=== PATIENT | male | born 1995 | race Asian ===

== ENCOUNTER 2017-02-28 12:13 | Emergency (ER) | payer BC ==
[~2017-02-28] VITALS: Ht 177.8 cm; Wt 64.5 kg
[2017-02-28 12:18] VITALS: TEMP 36.5; Ht 177.8 cm; Wt 64.5 kg
--- NOTE | 2017-02-28 12:36 | EMERGENCY ROOM VISIT NOTE ---
ED Visit Note First contact with patient: 12:27 CHIEF COMPLAINT: Left third finger injury HISTORY OF PRESENT ILLNESS: This 21-year-old male presents the ER with chief complaint of injury to his left third finger. The patient states that this morning he was vacuuming and put his hand underneath a vacuum to check the airflow and the brush hit his left third finger and now there is an open wound. The patient applied antibiotic ointment and a bandage. The patient's tetanus is up-to-date. The patient is right-hand dominant. The patient states he just wanted to make sure it was nothing serious. REVIEW OF SYSTEMS: 6 system review was performed and was negative unless stated otherwise in history of present illness. PMH: The patient is healthy; there is no significant medical or surgical history. SOCIAL HISTORY: Patient is a [employer] student. The patient denies tobacco use but admits to occasional alcohol use. PHYSICAL EXAM: Vital Signs: Were reviewed Reviewed Nurse's notes. GEN.: 21-year -old male appears in no acute distress. MENTAL STATUS: Alert and oriented 3. LEFT THIRD FINGER: There is a superficial abrasion noted over the dorsal aspect of the middle and distal phalanx. There is no active bleeding. The patient is able to flex and extend his finger without difficulty. There are no signs of infection. EMERGENCY DEPARTMENT COURSE: The patient was evaluated. The wound was cleansed and antibiotic ointment and a bandage applied. DIAGNOSIS: Abrasion left third finger DISCHARGE INSTRUCTIONS & TREATMENT: Antibiotic ointment and a bandage for 2 days then let the wound open to the air to heel. Any signs of infection, follow -up with [facility]. Vital Signs Date Time Temp Pulse Resp B/P (MAP) Pulse Ox O2 Delivery O2 Flow Rate FiO2 02/28/17 12:18 36.5 75 16 110/73 98 Room Air Departure Information Referrals No Doctor, Assigned (PCP) Patient Instructions [facility]
[2017-02-28 12:46] VITALS: BP 105/70; PULSE 75; O2SAT 99
== END 2017-02-28 12:42 | disposition home or self-care (01) ==
LOC: C.EDB 12:15 → C.EDD 12:42
DX: S60.413A Abrasion of left middle finger, initial encounter (principal); W29.2XXA Contact with other powered household machinery, initial encounter